=== PATIENT | female | born 1995 | race Hispanic/Latino ===

== ENCOUNTER 2023-04-04 09:16 | Inpatient (IN) | payer MEDICAID, SELFPAY ==
[2023-04-04] MEDS ORDERED: hydrALAZINE 20 MG/ML VIAL SLOW IVP PRN (10:17)
[2023-04-04] MEDS ORDERED: Ondansetron PF 4 MG/2 ML Vial IVP PRN ×2 (10:17→17:47)
[2023-04-04] MEDS ORDERED: Acetaminophen 500 MG TAB PO PRN (10:17)
[2023-04-04] MEDS ORDERED: Docusate 100 MG CAP PO PRN (10:17)
[2023-04-04] MEDS ORDERED: Promethazine HCl 25 MG/ML VIAL IM PRN ×2 (10:17→17:47)
[2023-04-04] MEDS ORDERED: Oxytocin 30 units/NS 500 ML 500 ML IV SCH (10:30)
[2023-04-04 11:19] VITALS: BMI 34.9
[2023-04-04] MEDS ORDERED: NIFEdipine XL 30 MG TAB PO SCH (11:45)
[2023-04-04] MEDS: Morphine 4 MG/ML VIAL SLOW IVP PRN ×2 (11:51→15:59)
[2023-04-04] MEDS: Labetalol HCl 200 MG TAB PO SCH (12:00)
[2023-04-04] MEDS ORDERED: Labetalol HCl 200 MG TAB PO SCH (12:00)
[2023-04-04] MEDS: HYDROcodone/Acetaminophen 5/325 mg Tablet PO PRN ×2 (12:00→16:56)
[2023-04-04] MEDS: NIFEdipine XL 30 MG TAB PO SCH (12:59)
[2023-04-04] MEDS ORDERED: Promethazine HCl 25 MG/ML VIAL IM SCH (13:00)
[2023-04-04] MEDS ORDERED: Morphine 4 MG/ML VIAL SLOW IVP PRN (16:53)
[2023-04-04] MEDS ORDERED: Morphine 4 MG/ML VIAL SLOW IVP SCH (17:00)
[2023-04-04] MEDS ORDERED: Dexamethasone 4 mg/ml Vial IM SCH (17:45)
[2023-04-04] MEDS ORDERED: diphenhydrAMINE 25 MG CAP PO PRN (17:47)
[2023-04-04] MEDS ORDERED: Naloxone HCl 0.4 mg/ml Vial IV PRN (17:47)
[2023-04-04] MEDS ORDERED: diphenhydrAMINE 50 MG/ML VIAL IM PRN (17:47)
[2023-04-04] MEDS ORDERED: diphenhydrAMINE 50 MG/ML VIAL IVP PRN (17:47)
[2023-04-04] MEDS ORDERED: FENTANYL 500 MCG/10 ML VIAL 2,000 MCG in Sodium Chloride 0.9% 60 ML IV PRN (17:47)
[2023-04-04] MEDS ORDERED: Communication Order-Pharmacy FS PRN (18:00)
[2023-04-04] MEDS: Ibuprofen 800 MG TAB PO SCH ×2 (18:11→19:46)
[2023-04-04] MEDS: Ferrous Sulfate 325 MG TAB PO SCH (18:12)
[2023-04-04] MEDS: FENTANYL 500 MCG/10 ML VIAL 1,000 MCG in Sodium Chloride 0.9% 30 ML IV PRN (18:55)
[2023-04-04] MEDS: Lactated Ringer's 1,000 ML IV SCH (19:44)
[2023-04-04] MEDS ORDERED: Dexamethasone 4 mg/ml Vial SLOW IVP SCH (20:00)
[2023-04-04] MEDS: Ipratropium/Albuterol 3 ML NEB NEB SCH ×2 (20:11→23:11)
[2023-04-05] MEDS: Labetalol HCl 200 MG TAB PO SCH ×3 (01:24→23:14)
[2023-04-05 02:47] LABS: #Monocytes 0.9 10x3/uL (0.0-1.1); #Neutrophils 11.7 10x3/uL (1.5-8.4); %Basophils 0.1 % (0.0-2.0); %Eosinophils 0.1 % (0.0-6.0); %Lymphocytes 9.8 % (18.0-47.0); %Monocytes 6.2 % (0.0-10.0); %Neutrophils 83.3 % (40.0-75.0); Hematocrit 34.9 % (34.9-44.5); Hemoglobin 11.7 g/dL (12.0-15.5); Mean Corpuscular HGB CONC 33.5 g/dL (32.0-36.0); Mean Corpuscular Hemoglobin 31.3 pg (27.0-33.0); Mean Corpuscular Volume 93.3 fl (81.6-98.3); Mean Platelet Volume 9.2 fl (7.4-10.4); Platelet Count 463 10x3/uL (150-450); RBC Distribution Width 13.8 % (11.5-14.5); Red Blood Cell (RBC) Count 3.74 10x6/uL (3.90-5.03); White Blood Cell (WBC) Count 14.1 10x3/uL (3.5-10.5)
[2023-04-05] MEDS: Ibuprofen 800 MG TAB PO SCH (02:55)
[2023-04-05] MEDS: Lactated Ringer's 1,000 ML IV SCH ×4 (02:56→21:07)
[2023-04-05] MEDS: Ipratropium/Albuterol 3 ML NEB NEB SCH ×4 (03:14→14:40)
[2023-04-05 03:19] LABS: Lactic Acid 1.2 mmol/L (0.5-2.2)
[2023-04-05 03:25] LABS: ALT (SGPT) 66 U/L (8-55); AST (SGOT) 79 U/L (5-34); Albumin 2.7 g/dL (3.5-5.0); Alkaline Phosphatase 366 U/L (40-110); Anion Gap 15 mmol/L (10-20); BUN (Urea Nitrogen) 14 mg/dL (7.0-18.7); Bilirubin, Total 6.8 mg/dL (0.2-1.2); Calc. Creatinine Clearance 167 mL/min (70-130); Calcium 7.9 mg/dL (7.8-10.44); Carbon Dioxide 21 mmol/L (22-29); Chloride 106 mmol/L (98-107); Estimated GFR 122; Glucose 133 mg/dL (70-105); Potassium 3.7 mmol/L (3.5-5.1); Protein, Total 5.7 g/dL (6.0-8.3); Sodium 138 mmol/L (136-145)
[2023-04-05] MEDS ORDERED: Bisacodyl 10 MG SUPP PR PRN (04:59)
[2023-04-05 05:44] LABS: Lipase 2745 U/L (8-78)
[2023-04-05 05:52] LABS: Bilirubin 6 (Negative); Blood, Urine 25 (Negative); Clarity Slightly Cloudy (Clear); Glucose, Urine (Dipstick) Normal (Negative); Ketone, Urine 5 mg/dL (Negative); Leukocyte 25 (Negative); Nitrite Positive (Negative); Protein, Urine (Dipstick) 30 mg/dl (Neg-Trace); Specific Gravity, Urine 1.025 (1.005-1.030)
[2023-04-05] MEDS ORDERED: Dexamethasone 4 mg/ml Vial SLOW IVP SCH (06:00)
[2023-04-05 06:56] LABS: Bacteria/HPF Rare-Few HPF (None Seen); CAUTI Indications for Culture Pregnancy; RBC/HPF 0-3 HPF (0-3); WBC/HPF 0-3 HPF (0-3)
[2023-04-05 06:59] LABS: Urine Culture Reflex Yes Yes
[2023-04-05] MEDS: FENTANYL 500 MCG/10 ML VIAL 1,000 MCG in Sodium Chloride 0.9% 30 ML IV PRN ×2 (08:28→20:51)
[2023-04-05] MEDS: NIFEdipine XL 30 MG TAB PO SCH (09:21)
[2023-04-05] MEDS ORDERED: cefTRIAXone\\ROCEPHIN 1 GM in Sodium Chloride 0.9% 100 ML IVPB SCH (11:00)
[2023-04-05 11:03] LABS: D-Dimer Test 14.55 mg/L FEU (0.19-0.50); HBSAg Index 0.67 S/CO (0-0.99); Hep B Surf Ag Non-Reactive S/CO (NonReactive); PTT 29.1 sec (22.0-33.0); Prothrombin Time 10.9 sec (9.5-12.1)
[2023-04-05 15:35] LABS: HBCM Index 0.08 S/CO (0-0.79); Hep A IgM AB Non-Reactive S/CO (NonReactive); Hep A IgM S/CO 0.17 S/CO (0-0.79); Hep C IgG Ab Non-Reactive S/CO (NonReactive); Hep C Index 0.06 S/CO (0-0.79); Hepatitis B Core IgM Abs Non-Reactive S/CO (NonReactive)
[2023-04-05] MEDS: Ferrous Sulfate 325 MG TAB PO SCH ×2 (16:37→17:23)
[2023-04-05] MEDS ORDERED: Ipratropium/Albuterol 3 ML NEB NEB PRN (17:38)
[2023-04-05] MEDS ORDERED: Lactated Ringer's 1,000 ML IV SCH (23:00)
[2023-04-05 23:24] LABS: #Eosinphils 0.1 10x3/uL (0.0-0.5); #Neutrophils 15.3 10x3/uL (1.5-8.4); %Basophils 0.2 % (0.0-2.0); %Eosinophils 0.3 % (0.0-6.0); %Lymphocytes 6.5 % (18.0-47.0); %Monocytes 5.5 % (0.0-10.0); %Neutrophils 86.7 % (40.0-75.0); Hematocrit 31.8 % (34.9-44.5); Hemoglobin 10.6 g/dL (12.0-15.5); Mean Corpuscular HGB CONC 33.3 g/dL (32.0-36.0); Mean Corpuscular Hemoglobin 31.2 pg (27.0-33.0); Mean Corpuscular Volume 93.5 fl (81.6-98.3); Mean Platelet Volume 9.3 fl (7.4-10.4); Platelet Count 450 10x3/uL (150-450); RBC Distribution Width 14.1 % (11.5-14.5); White Blood Cell (WBC) Count 17.7 10x3/uL (3.5-10.5)
[2023-04-05 23:30] LABS: Anion Gap 14 mmol/L (10-20); BUN (Urea Nitrogen) 17 mg/dL (7.0-18.7); Calc. Creatinine Clearance 159 mL/min (70-130); Calcium 7.5 mg/dL (7.8-10.44); Carbon Dioxide 22 mmol/L (22-29); Chloride 105 mmol/L (98-107); Estimated GFR 120; Glucose 96 mg/dL (70-105); Magnesium 1.7 mg/dL (1.6-2.6); Potassium 3.4 mmol/L (3.5-5.1); Sodium 138 mmol/L (136-145)
[2023-04-06] MEDS ORDERED: Potassium Chloride 20 MEQ in Premix Bag 1 BAG IVPB SCH (02:00)
[2023-04-06] MEDS: Potassium Chloride 20 MEQ in Premix Bag 1 BAG IVPB SCH ×2 (03:14→05:32)
[2023-04-06] MEDS: Lactated Ringer's 1,000 ML IV SCH ×5 (04:00→21:40)
[2023-04-06 04:12] LABS: ALT (SGPT) 77 U/L (8-55); AST (SGOT) 51 U/L (5-34); Albumin 2.5 g/dL (3.5-5.0); Alkaline Phosphatase 418 U/L (40-110); Bilirubin, Direct 2.4 mg/dL (0.1-0.3); Bilirubin, Total 3.3 mg/dL (0.2-1.2); Cardiac Risk 8.6 (Less than 4.5); Cholesterol 137 mg/dl (< 200 Desired); HDL Cholesterol 16 mg/dL (>60 Neg Risk); LDL Cholesterol, Calculated 101 mg/dL; Lipase 560 U/L (8-78); Protein, Total 5.2 g/dL (6.0-8.3); Triglycerides 100 mg/dL (Less than 150)
[2023-04-06] MEDS ORDERED: cefTRIAXone\\ROCEPHIN 2 GM in Sodium Chloride 0.9% 100 ML IVPB SCH (09:00)
[2023-04-06] MEDS: NIFEdipine XL 30 MG TAB PO SCH (09:49)
[2023-04-06] MEDS: Ferrous Sulfate 325 MG TAB PO SCH ×2 (09:50→17:06)
[2023-04-06] MEDS: Labetalol HCl 200 MG TAB PO SCH ×2 (09:51→21:44)
[2023-04-06] MEDS ORDERED: Lactated Ringer's 1,000 ML IV SCH ×2 (10:45→16:00)
[2023-04-06] MEDS ORDERED: Meropenem 1 GM in Sodium Chloride 0.9% 100 ML IVPB SCH (12:00)
[2023-04-06] MEDS: Meropenem 1 GM in Sodium Chloride 0.9% 100 ML IVPB SCH ×2 (13:14→21:43)
[2023-04-06] MEDS ORDERED: Ibuprofen 200 MG TAB PO PRN (19:07)
[2023-04-07] MEDS: Lactated Ringer's 1,000 ML IV SCH ×3 (03:30→14:07)
[2023-04-07] MEDS: Meropenem 1 GM in Sodium Chloride 0.9% 100 ML IVPB SCH ×3 (04:30→20:11)
[2023-04-07 05:26] LABS: #Eosinphils 0.1 10x3/uL (0.0-0.5); #Neutrophils 12.2 10x3/uL (1.5-8.4); %Basophils 0.2 % (0.0-2.0); %Eosinophils 0.5 % (0.0-6.0); %Lymphocytes 11.8 % (18.0-47.0); %Monocytes 6.6 % (0.0-10.0); %Neutrophils 79.4 % (40.0-75.0); Hematocrit 25.4 % (34.9-44.5); Hemoglobin 8.2 g/dL (12.0-15.5); Mean Corpuscular HGB CONC 32.3 g/dL (32.0-36.0); Mean Corpuscular Hemoglobin 30.7 pg (27.0-33.0); Mean Corpuscular Volume 95.1 fl (81.6-98.3); Mean Platelet Volume 9.2 fl (7.4-10.4); Platelet Count 407 10x3/uL (150-450); RBC Distribution Width 14.4 % (11.5-14.5); Red Blood Cell (RBC) Count 2.67 10x6/uL (3.90-5.03); White Blood Cell (WBC) Count 15.4 10x3/uL (3.5-10.5)
[2023-04-07 05:31] LABS: ALT (SGPT) 37 U/L (8-55); AST (SGOT) 17 U/L (5-34); Albumin 2.3 g/dL (3.5-5.0); Alkaline Phosphatase 265 U/L (40-110); Bilirubin, Direct 0.9 mg/dL (0.1-0.3); Bilirubin, Total 1.3 mg/dL (0.2-1.2); Protein, Total 4.9 g/dL (6.0-8.3)
[2023-04-07] MEDS: Acetaminophen 325 MG TAB PO PRN ×2 (08:52→20:10)
[2023-04-07] MEDS: Ferrous Sulfate 325 MG TAB PO SCH ×2 (08:53→19:37)
[2023-04-07] MEDS: NIFEdipine XL 30 MG TAB PO SCH (08:53)
[2023-04-07] MEDS: Labetalol HCl 200 MG TAB PO SCH ×2 (08:54→20:10)
[2023-04-07] MEDS ORDERED: Bupivacaine HCl 0.5%/Epinephrine 1:200,000/PF 30 ml Vial ONE (10:30)
[2023-04-07] MEDS ORDERED: Lactated Ringer's 1,000 ML IV SCH (16:37)
[2023-04-07] MEDS: fentaNYL 50 mcg/mL 1 mL Vial SLOW IVP PRN ×2 (17:21→23:30)
[2023-04-07] MEDS ORDERED: Furosemide 40 MG/4 ML VIAL SLOW IVP SCH (18:00)
[2023-04-07 18:08] LABS: ALV-art Gradient 332.825 mmHg (0-20); Actual Bicarbonate (HCO3a) 22.7 mEq/L (22-28); Base Excess (BEa) -0.3 mEq/L (-2.0 to +3.0); CO2 Tension 31.1 mmHg (35.0-45.0); Carboxyhemoglobin (COHb) 0.2 gm% (0.0-3.0); Hematocrit-ABG 29 % (36.0-47.0); Hemoglobin (Hb) 9.8 g/dL (12.0-16.0); O2 Tension (PaO2), arterial 56.1 mmHg (80.0-100.0); Potassium - ABG Lab 3.47 mmol/L (3.70-5.30); Puncture Site LRA; Temperature 39.8 C; pH, Arterial 7.481 (7.35-7.45)
[2023-04-07 18:36] LABS: #Monocytes 0.7 10x3/uL (0.0-1.1); #Neutrophils 18.7 10x3/uL (1.5-8.4); %Basophils 0.2 % (0.0-2.0); %Eosinophils 0.2 % (0.0-6.0); %Lymphocytes 7.3 % (18.0-47.0); %Monocytes 3.4 % (0.0-10.0); %Neutrophils 87.3 % (40.0-75.0); Hematocrit 28.7 % (34.9-44.5); Hemoglobin 9.2 g/dL (12.0-15.5); Mean Corpuscular HGB CONC 32.1 g/dL (32.0-36.0); Mean Corpuscular Hemoglobin 30.2 pg (27.0-33.0); Mean Corpuscular Volume 94.1 fl (81.6-98.3); Mean Platelet Volume 9.1 fl (7.4-10.4); Platelet Count 522 10x3/uL (150-450); RBC Distribution Width 14.5 % (11.5-14.5); Red Blood Cell (RBC) Count 3.05 10x6/uL (3.90-5.03); White Blood Cell (WBC) Count 21.4 10x3/uL (3.5-10.5)
[2023-04-07 18:42] LABS: ALT (SGPT) 63 U/L (8-55); AST (SGOT) 87 U/L (5-34); Albumin 2.4 g/dL (3.5-5.0); Alkaline Phosphatase 247 U/L (40-110); Anion Gap 15 mmol/L (10-20); BUN (Urea Nitrogen) 10 mg/dL (7.0-18.7); Bilirubin, Total 1.2 mg/dL (0.2-1.2); Calc. Creatinine Clearance 211 mL/min (70-130); Calcium 7.2 mg/dL (7.8-10.44); Carbon Dioxide 23 mmol/L (22-29); Chloride 107 mmol/L (98-107); Estimated GFR 129; Globulin 2.8 g/dL (2.4-3.5); Glucose 96 mg/dL (70-105); Potassium 3.6 mmol/L (3.5-5.1); Protein, Total 5.2 g/dL (6.0-8.3); Sodium 141 mmol/L (136-145)
[2023-04-07] MEDS: Ipratropium/Albuterol 3 ML NEB NEB SCH (20:10)
[2023-04-08 03:11] LABS: #Basophils 0.1 10x3/uL (0.0-0.2); #Eosinphils 0.1 10x3/uL (0.0-0.5); #Monocytes 1.1 10x3/uL (0.0-1.1); #Neutrophils 17.7 10x3/uL (1.5-8.4); %Basophils 0.3 % (0.0-2.0); %Eosinophils 0.7 % (0.0-6.0); %Lymphocytes 7.9 % (18.0-47.0); %Monocytes 5.2 % (0.0-10.0); %Neutrophils 83.8 % (40.0-75.0); Hemoglobin 9.4 g/dL (12.0-15.5); Mean Corpuscular HGB CONC 32.4 g/dL (32.0-36.0); Mean Corpuscular Hemoglobin 30.4 pg (27.0-33.0); Mean Corpuscular Volume 93.9 fl (81.6-98.3); Platelet Count 590 10x3/uL (150-450); RBC Distribution Width 14.5 % (11.5-14.5); Red Blood Cell (RBC) Count 3.09 10x6/uL (3.90-5.03); White Blood Cell (WBC) Count 21.1 10x3/uL (3.5-10.5)
[2023-04-08 03:28] LABS: ALT (SGPT) 49 U/L (8-55); AST (SGOT) 44 U/L (5-34); Albumin 2.4 g/dL (3.5-5.0); Alkaline Phosphatase 245 U/L (40-110); Anion Gap 15 mmol/L (10-20); BUN (Urea Nitrogen) 13 mg/dL (7.0-18.7); Bilirubin, Total 1.4 mg/dL (0.2-1.2); Calc. Creatinine Clearance 172 mL/min (70-130); Calcium 7.4 mg/dL (7.8-10.44); Carbon Dioxide 24 mmol/L (22-29); Chloride 107 mmol/L (98-107); Estimated GFR 123; Globulin 2.9 g/dL (2.4-3.5); Glucose 103 mg/dL (70-105); Potassium 3.4 mmol/L (3.5-5.1); Protein, Total 5.3 g/dL (6.0-8.3); Sodium 143 mmol/L (136-145)
[2023-04-08] MEDS: Meropenem 1 GM in Sodium Chloride 0.9% 100 ML IVPB SCH ×2 (03:55→12:29)
[2023-04-08] MEDS: Potassium Chloride 20 MEQ in Premix Bag 1 BAG IVPB SCH ×2 (06:07→07:57)
[2023-04-08 06:32] LABS: Magnesium 1.8 mg/dL (1.6-2.6)
[2023-04-08] MEDS ORDERED: Glycopyrrolate 0.2 MG/ML 5 ML SYRINGE ONE (06:59)
[2023-04-08] MEDS ORDERED: PHENYLEPHRINE-NS 100 MCG/ML 10 ML SYRINGE ONE (06:59)
[2023-04-08] MEDS ORDERED: Lidocaine 1% PF 5 ML VIAL ONE (06:59)
[2023-04-08] MEDS ORDERED: Rocuronium Bromide 10 MG/ML (10ML VIAL) ONE ×3 (06:59→16:02)
[2023-04-08] MEDS ORDERED: Succinylcholine 200 MG/10 ml SYRINGE FS ONE (06:59)
[2023-04-08] MEDS ORDERED: PROPOFOL 40 ML ONE (07:00)
[2023-04-08] MEDS ORDERED: Fentanyl 250 MCG/5 ML VIAL ONE ×2 (07:00→15:58)
[2023-04-08] MEDS ORDERED: Glucagon 1 MG/ML KIT ONE (07:07)
[2023-04-08] MEDS ORDERED: Iopamidol 30 ML ONE (07:07)
[2023-04-08] MEDS ORDERED: SUGAMMADEX SODIUM 200 MG/2 ML VIAL ONE (07:12)
[2023-04-08] MEDS: Ipratropium/Albuterol 3 ML NEB NEB SCH ×3 (07:15→16:45)
[2023-04-08] MEDS ORDERED: Indomethacin 50 MG SUPP ONE (07:43)
[2023-04-08] MEDS ORDERED: Norepinephrine 4 MG/4 ML VIAL ONE (07:45)
[2023-04-08] MEDS ORDERED: Calcium Chloride 1 GM/10 ML Abboject SYRINGE ONE (07:46)
[2023-04-08] MEDS: Ferrous Sulfate 325 MG TAB PO SCH ×2 (07:52→15:18)
[2023-04-08] MEDS: Labetalol HCl 200 MG TAB PO SCH (09:46)
[2023-04-08] MEDS ORDERED: Midazolam HCl 2 mg/2 ml Vial ONE (09:54)
[2023-04-08] MEDS ORDERED: Lorazepam 2 MG/ML VIAL SLOW IVP PRN (10:00)
[2023-04-08] MEDS ORDERED: FENTANYL 2,000MCG/100-0.9%NACL 100 ML IVPB SCH (10:00)
[2023-04-08] MEDS ORDERED: Morphine 2 MG/ML VIAL SLOW IVP PRN (10:00)
[2023-04-08] MEDS ORDERED: Fentanyl BOLUS 250 ML IVPB PRN (10:00)
[2023-04-08] MEDS ORDERED: Propofol 1,000 MG/100 ML VIAL IV PRN (10:00)
[2023-04-08] MEDS ORDERED: DISCONTINUE PREVIOUS NARCOTIC PAIN MEDICATIONS AND BENZODIAZEPINES FS SCH (10:00)
[2023-04-08] MEDS ORDERED: Propofol BOLUS 1,000 MG/100 ML VIAL IV PRN (10:00)
[2023-04-08 11:37] LABS: Actual Bicarbonate (HCO3a) 26.3 mEq/L (22-28); Base Excess (BEa) 2.6 mEq/L (-2.0 to +3.0); CO2 Tension 37.8 mmHg (35.0-45.0); O2 Tension (PaO2), arterial 105.3 mmHg (80.0-100.0); Puncture Site RRA
[2023-04-08] MEDS ORDERED: Furosemide 40 MG/4 ML VIAL SLOW IVP SCH (14:00)
[2023-04-08] MEDS ORDERED: Tranexamic Acid 1,000 MG/10 ML VIAL ONE (15:56)
[2023-04-08] MEDS ORDERED: Methylergonovine 0.2 MG/ML VIAL ONE (15:56)
[2023-04-08] MEDS ORDERED: Misoprostol 200 MCG TAB ONE (15:57)
[2023-04-08] MEDS ORDERED: PROPOFOL 20 ML ONE (15:58)
[2023-04-08] MEDS ORDERED: Midazolam HCl 5 mg/5 ml Vial ONE (15:59)
[2023-04-08] MEDS ORDERED: Famotidine/PF 20 mg/2ml Vial SLOW IVP SCH (17:15)
[2023-04-08 17:18] VITALS: TEMP 99.9
[2023-04-08] MEDS ORDERED: Vancomycin HCl 1.25 GM, Admixture Fee 1 EACH in Sodium Chloride 0.9% 250 ML 250 ML IVPB SCH (18:00)
[2023-04-08 18:33] VITALS: BP 125/80
[2023-04-08] MEDS ORDERED: Vancomycin 1 GM in Premix Bag 1 BAG IVPB SCH (21:00)
[2023-04-09] MEDS ORDERED: Vancomycin HCl 1 GM in Sodium Chloride 0.9% 250 ML 250 ML IVPB SCH (04:00)
[2023-04-09] MEDS ORDERED: Famotidine/PF 20 mg/2ml Vial SLOW IVP SCH (09:00)
== END 2023-04-08 18:33 | disposition short-term general hospital (02) | DRG 769 ==
LOC: CSHLD 09:16 → MERGE 09:16 → CSHTELE 04-05 16:00 → CSHIMCU 04-07 19:45
PROVIDERS: ADMIT Family Medicine; ATTEND Family Medicine
PROC: 4A133R1 Monitoring of Arterial Saturation, Peripheral, Percutaneous Approach (ICD-10-PCS; principal; 2023-04-07)
PROC: 0FT44ZZ Resection of Gallbladder, Percutaneous Endoscopic Approach (ICD-10-PCS; 2023-04-07)
PROC: BF141ZZ Fluoroscopy of Gallbladder, Bile Ducts and Pancreatic Ducts using Low Osmolar Contrast (ICD-10-PCS; 2023-04-07)
PROC: 10D17ZZ Extraction of Products of Conception, Retained, Via Natural or Artificial Opening (ICD-10-PCS; 2023-04-08)
PROC: 0FC98ZZ Extirpation of Matter from Common Bile Duct, Via Natural or Artificial Opening Endoscopic (ICD-10-PCS; 2023-04-08)
PROC: 0BH17EZ Insertion of Endotracheal Airway into Trachea, Via Natural or Artificial Opening (ICD-10-PCS; 2023-04-08)
PROC: 5A1935Z Respiratory Ventilation, Less than 24 Consecutive Hours (ICD-10-PCS; 2023-04-08)
DX: O99.63 Diseases of the digestive system complicating the puerperium (principal); K85.10 Biliary acute pancreatitis without necrosis or infection; R65.20 Severe sepsis without septic shock; J80 Acute respiratory distress syndrome; A41.9 Sepsis, unspecified organism; J98.11 Atelectasis; K80.42 Calculus of bile duct with acute cholecystitis without obstruction; O98.83 Other maternal infectious and parasitic diseases complicating the puerperium; Z88.0 Allergy status to penicillin; O99.03 Anemia complicating the puerperium; O99.53 Diseases of the respiratory system complicating the puerperium; D50.8 Other iron deficiency anemias; O86.21 Infection of kidney following delivery; O99.215 Obesity complicating the puerperium; E66.9 Obesity, unspecified; Z83.3 Family history of diabetes mellitus; Z82.49 Family history of ischemic heart disease and other diseases of the circulatory system; O14.95 Unspecified pre-eclampsia, complicating the puerperium
CPT/HCPCS: 36415; 36416; 36600; 47532; 71045; 74330; 76705; 76856; 80053; 80061; 80074; 80076; 81001; 82805; 83605; 83690; 83735; 83880; 84478; 85025; 85049; 85300; 85362; 85379; 85384; 85610; 85730; 86140; 86850; 86900; 86901; 87040; 87070; 87086; 87205; 88304; 88305; 93005; 93010; 93306; 93970; 94002; 94640; 94760; 94762; 99285; C1713; C1889; J0696; J1100; J1611; J1940; J2185; J2210; J2250; J2270; J2550; J2704; J3010; J3475; J3480; J3490; J7120; J7620; Q9967; S0028